=== PATIENT | male | born 1955 | race African-American/Black ===

== ENCOUNTER 2018-07-09 07:21 | Emergency (ER) | payer OTHER ==
[~2018-07-09] VITALS: Ht 180.3 cm; Wt 81.6 kg
[2018-07-09 07:30] VITALS: BP 130/77
[2018-07-09] MEDS ORDERED: TETRACAINE 0.5% OPHTH SOLUTION 4ML BOTTLE. OS ONE (08:00)
[2018-07-09] MEDS ORDERED: ERYT1OIN6 OS (08:17)
--- NOTE | 2018-07-09 08:18 | PHYS DOC ---
Past History Past Medical History: Glaucoma, High Cholesterol, Hypertension Past Surgical History: Hip Replacement, Other Additional Past Surgical Histo: left eye cataract Smoking: Cigarettes, Less than 1pk/day Alcohol Use: None Drug Use: None Adult General Chief Complaint Chief Complaint: EYE PROBLEMS HPI HPI Patient is a 63-year-old male presents complaining of left eye redness. This was first noted on waking 2 days ago. Denies any trauma. Denies any metal on metal pounding. Denies any coughing or straining. Notes that it is a little blurry. Denies any drainage. Denies any photophobia. He does have a history of left eye cataract surgery. Also has a history of glaucoma. He does were glasses, no contacts. Nothing makes the symptoms better or worse.[] Review of Systems Review of Systems Constitutional: Denies fever or chills [] Eyes: See history of present illness[] HENT: Denies nasal congestion or sore throat [] Respiratory: Denies cough or shortness of breath [] Cardiovascular: No chest pain or palpitations[] GI: Denies abdominal pain, nausea, vomiting, bloody stools or diarrhea [] : Denies dysuria or hematuria [] Musculoskeletal: Denies back pain or joint pain [] Integument: Denies rash or skin lesions [] Neurologic: Denies headache, focal weakness or sensory changes [] Endocrine: Denies polyuria or polydipsia [] All other systems were reviewed and found to be within normal limits, except as documented in this note. Current Medications Current Medications Current Medications Medications (Trade) Dose Ordered Sig/[facility] Start Time Stop Time Status Last Admin Dose Admin Tetracaine HCl (Tetracaine) 1 drop 1X ONCE 07/09/18 08:00 07/09/18 08:01 SD Allergies Allergies Allergies Coded Allergies Type Severity Reaction Last Updated Verified No Known Drug Allergies 07/09/18 No Physical Exam Physical Exam Constitutional: Well developed, well nourished, no acute distress, non-toxic appearance. [] HENT: Normocephalic, atraumatic, bilateral external ears normal, oropharynx moist, no oral exudates, nose normal. [] Eyes: PERRLA, EOMI, conjunctiva normal on the right. Left eye shows redness on the medial/nasal aspect of the eye, from approximately the 10:00 to the 6:00 region. Normal fundus bilaterally. Intraocular pressure is 18 on a left anterior chamber is clear, no discharge. Normal lids[] Neck: Normal range of motion, no tenderness, supple, no stridor. [] Cardiovascular:Heart rate regular rhythm, no murmur [] Lungs & Thorax: Bilateral breath sounds clear to auscultation [] Abdomen: Not examined. [] Skin: Warm, dry, no erythema, no rash. [] Back: No tenderness, no CVA tenderness. [] Extremities: No tenderness, no cyanosis, no clubbing, ROM intact, no edema. [] Neurologic: Alert and oriented X 3, normal motor function, normal sensory function, no focal deficits noted. [] Psychologic: Affect normal, judgement normal, mood normal. [] Current Patient Data Vital Signs Vital Signs Date Time Temp Pulse Resp B/P (MAP) Pulse Ox O2 Delivery O2 Flow Rate FiO2 07/09/18 07:30 76 20 99 Room Air EKG EKG [] Radiology/Procedures Radiology/Procedures [] Course & Med Decision Making Course & Med Decision Making Pertinent Labs and Imaging studies reviewed. (See chart for details) Medical decision-making: Patient appears to have a subconjunctival hemorrhage. There is no evidence of trauma, narrow angle closure glaucoma, foreign body, uveitis, keratitis, retinal artery or vein occlusion, nor other significant eye illness.[] Dragon Disclaimer Dragon Disclaimer This electronic medical record was generated, in whole or in part, using a voice recognition dictation system. Departure Departure: Impression: Primary Impression: Subconjunctival hemorrhage of left eye Disposition: HOME, SELF-CARE Condition: IMPROVED Referrals: CORNELIUS [facility] CLERK-[facility] (PCP) Follow-up in 2 days Patient Instructions: Subconjunctival Hemorrhage Additional Instructions: Follow-up with your regular doctor in 2 days. Avoid anti-inflammatory medicines like ibuprofen, aspirin, or naproxen for the next week. Return to the ER if worsening pain, purulent drainage, or any other concerns. Scripts Erythromycin Base (Erythromycin) 1 Gm Oint...g. 1 APPLIC OS QD for EYE REDNESS for 5 Days, MISC Prov: DEVONTE MNCEAL DO 07/09/18 DEVONTE MCNEAL DO Jul 09, 2018 08:17
== END 2018-07-09 08:31 | disposition home or self-care (01) ==
LOC: ER 07:21
DX: H11.32 Conjunctival hemorrhage, left eye (principal); E78.00 Pure hypercholesterolemia, unspecified; I10 Essential (primary) hypertension; H40.9 Unspecified glaucoma; F17.210 Nicotine dependence, cigarettes, uncomplicated
CPT/HCPCS: 99283